=== PATIENT | male | born 1995 | race Caucasian/White ===

== ENCOUNTER → 2016-12-09 | Outpatient (CLI) | payer OTHER, BC ==
[~2016-12-09] MED LIST: FLUT1DIS IH; GADOBUTROL 7.5 MMOL/7.5 ML VIAL INT ART ONE; IOHEXOL 300 MG/ML 50 ML VIAL. INT ART ONE; LIDOCAINE 1% Multi-Dose 20 ML VIAL. ID ONE
--- NOTE | 2016-12-09 14:06 | KCIC ---
PROCEDURE MR arthrogram of the right shoulder HISTORY Pain for 7 years. TECHNIQUE Intra-articular contrast injected prior to the scan, and reported separately. The standard 4 plane sequences were obtained including ABER positioning. COMPARISON None FINDINGS Acromioclavicular joint is intact. No evidence of rotator cuff tear. No significant subdeltoid bursal fluid. Tear of the posterosuperior labrum, at about 10 o'clock through 12 o'clock. Articular cartilage intact. Biceps tendon intact. No evidence of HAGL lesion. No bone lesion or acute fracture. No acute soft tissue abnormality. IMPRESSION Posterosuperior labral tear. Electronically signed by: Gennaro Rivero MD (December 09, 2016 14:05:09)
--- NOTE | 2016-12-09 16:55 | KCIC ---
PROCEDURE: Right shoulder injection using fluoroscopic guidance, prior to MR. HISTORY: Shoulder pain. TECHNIQUE: The procedure was explained to the patient as were potential risks, including among others infection, bleeding or allergic reaction. All questions were answered. Informed written and verbal consent was obtained. The shoulder was prepped and draped in the usual sterile manner. Following administration of local anesthetic, a 22-gauge needle was advanced into the anterior shoulder. Following negative aspiration, 12 cc of a solution of 5cc Omnipaque-300 contrast, 5 cc 1% lidocaine, 10 cc normal saline, and 0.1 cc gadolinium was injected without difficulty. The needle was removed. There was good hemostasis at the injection site. The patient left in stable condition without immediate complication. The patient was given postprocedural instructions, and instructed to contact us or the ER if there are any complications. A single spot image is obtained. FLUOROSCOPY TIME: 20 seconds Electronically signed by: Gennaro Rivero MD (December 09, 2016 16:53:31)
== END | disposition home or self-care (01) ==
LOC: KCIC 10:53
PROVIDERS: ATTEND Orthopaedic Surgery
DX: S43.401A Unspecified sprain of right shoulder joint, initial encounter (principal); X58.XXXA Exposure to other specified factors, initial encounter; Y93.89 Activity, other specified; Y92.89 Other specified places as the place of occurrence of the external cause; Y99.8 Other external cause status
CPT/HCPCS: 73040; 73222; Q9967; A9585